=== PATIENT | male | born 1960 | race Caucasian/White ===

== ENCOUNTER 2018-03-07 10:35 | Observation (INO) | payer OTHER ==
[~2018-03-07] VITALS: Ht 167.6 cm; Wt 70.3 kg
[2018-03-07 10:41] VITALS: Ht 167.6 cm; Wt 70.3 kg
[2018-03-07 12:06] LABS: BASOPHIL % 0.3 % (0-2); PLATELET COUNT 232 x10^3mcL (130-400); RED CELL DISTRIBUTION WIDTH 13.5 % (11.5-14.5)
[2018-03-07 12:22] LABS: CALCIUM 8.6 mg/dL (8.5-10.1); CARBON DIOXIDE 29.7 mmol/L (21-32); CHLORIDE SERUM 104 mmol/L (98-107); CREATININE SERUM 0.7 mg/dL (0.7-1.3); GFR1 > 60 mL/min; GLUCOSE SERUM 294 mg/dL (74-106); POTASSIUM SERUM 4.2 mmol/L (3.5-5.1); SODIUM SERUM 135 mmol/L (136-145)
[2018-03-07 12:27] LABS: ALBUMIN 3.6 g/dL (3.4-5.0); ALKALINE PHOSPHATASE 83 U/L (46-116); ALT/SGPT 21 U/L (16-63); AST/SGOT 16 U/L (15-37); BILIRUBIN TOTAL 0.6 mg/dL (0.20-1.00); TOTAL PROTEIN, SERUM 7.3 g/dL (6.4-8.2)
[2018-03-07] MEDS ORDERED: GLIPIZIDE ER5 M1 PO (12:49)
[2018-03-07] MEDS ORDERED: LEVOTHYROXINE0.2 M2 PO (12:50)
[2018-03-07] MEDS ORDERED: LOVASTATIN20 MG PO (12:50)
[2018-03-07] MEDS ORDERED: LANTUS SOLOS100 U/M1 SC (12:50)
[2018-03-07 14:05] LABS: CHOLESTEROL/HDL RATIO 3.7; MAGNESIUM 2.1 mg/dL (1.8-2.4); PHOSPHOROUS 3.3 mg/dL (2.5-4.9)
[2018-03-07 14:10] VITALS: BP 162/76
[2018-03-07 14:10] LABS: T3 TOTAL 1.17 ng/mL
[2018-03-07 14:20] LABS: FREE T4 1.83 ng/dL (0.76-1.46); FREE THYROXINE INDEX 4.4 ug/dL (1.4-4.5); T4(THYROXINE) 11.7 ug/dL (4.7-13.3)
[2018-03-07 15:42] LABS: microscopic required? NO
[2018-03-07 16:01] LABS: urine erythrocyte NEGATIVE (NEGATIVE)
[2018-03-07 16:11] LABS: AMPHETAMINE QUAL UR NONE DETECTED (NEG <=1000)
[2018-03-07 17:50] VITALS: BP 144/93
[2018-03-07 21:21] VITALS: BP 130/71
[2018-03-08 05:25] VITALS: BP 132/69
[2018-03-08 06:53] LABS: BASOPHIL % 0.5 % (0-2); PLATELET COUNT 230 x10^3mcL (130-400); RED CELL DISTRIBUTION WIDTH 13.9 % (11.5-14.5)
[2018-03-08 07:10] LABS: CALCIUM 8.5 mg/dL (8.5-10.1); CARBON DIOXIDE 27.8 mmol/L (21-32); CHLORIDE SERUM 107 mmol/L (98-107); CREATININE SERUM 0.6 mg/dL (0.7-1.3); GFR1 > 60 mL/min; GLUCOSE SERUM 143 mg/dL (74-106); POTASSIUM SERUM 4.3 mmol/L (3.5-5.1); SODIUM SERUM 139 mmol/L (136-145)
[2018-03-08 08:56] VITALS: BP 145/72
[2018-03-08] MEDS ORDERED: BAY PO (11:11)
[2018-03-08 13:54] VITALS: BP 140/73
[2018-03-08] MEDS ORDERED: LIPITOR80 MG PO (14:28)
[2018-03-08 15:05] VITALS: BP 140/73
== END 2018-03-08 16:14 | disposition home or self-care (01) | DRG 206 ==
LOC: ED 10:35 → DU 13:13
PROVIDERS: Emergency Medicine; Family Medicine
DX: M94.0 Chondrocostal junction syndrome [Tietze] (principal); E87.1 Hypo-osmolality and hyponatremia; I69.951 Hemiplegia and hemiparesis following unspecified cerebrovascular disease affecting right dominant side; E11.51 Type 2 diabetes mellitus with diabetic peripheral angiopathy without gangrene; E11.65 Type 2 diabetes mellitus with hyperglycemia; I10 Essential (primary) hypertension; E78.5 Hyperlipidemia, unspecified; E89.0 Postprocedural hypothyroidism; Z79.4 Long term (current) use of insulin; Z68.25 Body mass index [BMI] 25.0-25.9, adult
CPT/HCPCS: 82962; 83880; 84439; G0378; J7030; Q0092